=== PATIENT | female | born 1935 | race Caucasian/White ===

== ENCOUNTER 2019-12-17 03:35 | Inpatient (IN) | payer MEDICARE, OTHER ==
[~2019-12-17] VITALS: Ht 167.6 cm; Wt 86.4 kg
[~2019-12-17 03:35] MED LIST: ACET-6 PO; ALB2.5IS NEB; ALBUAER3 IN; ASCO500T11 PO; ASPI-543 PO; BISA10SU45 RE; CHOL20007 OR; DOCU100T15 PO; FURO1TAB31 PO; LACT10SO3 PO; MAGN400S25 PO; MULT1TAB95 PO; NITR0.4S29 SL; RISP0.5T12 PO
[2019-12-17 05:00] LABS: Basophils # (auto) 0 10 ^3/uL (0-0.2); Basophils % (auto) 0.5 % (0.0-2.0); Eosinophils # (auto) 0 10 ^3/uL (0-0.8); Eosinophils % (auto) 0.5 % (0.0-7.0); Hematocrit 42.1 % (36.0-46.0); Hemoglobin 13.5 g/dL (12.2-16.2); Lymphocytes # (auto) 1.8 10 ^3/uL (0.4-5.4); Mean Corpuscular Hemoglobin 30.1 pg (28.0-32.0); Mean Corpuscular Hgb Conc. 32.2 g/dL (32.0-36.0); Mean Corpuscular Volume 93.5 fL (80.0-100.0); Monocytes # (auto) 1.2 10 ^3/uL (0-1.3); Monocytes % (auto) 17.8 % (0.0-12.0); Neutrophils # (auto) 3.6 10 ^3/uL (1.6-8.6); Neutrophils % (auto) 54.2 % (37.0-80.0); Nucleated Red Blood Cells % 0.1 %; Platelet Count (auto) 124 10^3/uL (140-450); Red Cell Distribution Width 15.7 % (11.8-14.3); White Blood Cell 6.6 10^3/uL (4.4-10.8)
[2019-12-17] MEDS ORDERED: VANCOMYCIN 1GM/250ML 250 ML IV ONE (05:00)
[2019-12-17] MEDS ORDERED: PIPERACILLIN-TAZOB 3.375GM 100 ML IV ONE (05:00)
[2019-12-17 05:17] LABS: INR 1.15 (0.9-1.15); Partial Thromboplastin Time 28.5 sec (23.0-31.2)
[2019-12-17 05:23] LABS: Albumin 3.2 g/dL (3.4-5.0); Blood Urea Nitrogen 17 mg/dL (7-18); Calcium 8.7 mg/dL (8.5-10.1); Chloride 94 mmol/L (98-107); Glucose 86 mg/dL (74-106); Magnesium 2.4 mg/dL (1.6-2.6); Potassium 3.1 mmol/L (3.5-5.1); Sodium 141 mmol/L (136-145)
[2019-12-17] MEDS ORDERED: DexAMETHasone SOD PHOS 10MG/1ML VIAL INJ IV ONE (05:30)
[2019-12-17 05:31] LABS: Alanine Aminotransferase 12 U/L (13-56); Alkaline Phosphatase 68 U/L (45-117); Aspartate Aminotransferase 9 U/L (15-37); BUN/Creatinine Ratio 65.4; GFR African American 320 mL/min; GFR Non-African American 264 mL/min; Total Protein 6.2 g/dL (6.4-8.2)
[2019-12-17 05:53] LABS: Anion Gap 1 (5-15)
[2019-12-17 05:59] LABS: Carbon Dioxide 46 mmol/L (21-32)
[2019-12-17] MEDS ORDERED: FUROSEMIDE 20 MG/2 ML VIAL IV SCH (06:00)
[2019-12-17] MEDS ORDERED: ONDANSETRON HCL 4 MG/2 ML VIAL IV PRN (07:00)
[2019-12-17] MEDS ORDERED: MORPHINE SULF INJ 2 MG/ML SYRINGE 1ML IV PRN (07:00)
[2019-12-17] MEDS ORDERED: ACETAMINOPHEN 325 MG TAB PO PRN (07:00)
[2019-12-17] MEDS ORDERED: NITROGLYCERIN 0.4 MG SL TAB SL PRN (07:00)
[2019-12-17 07:33] LABS: Magnesium 2.3 mg/dL (1.6-2.6)
[2019-12-17 07:41] LABS: CRP High Sensitivity 1.08 mg/dL (< 0.3)
[2019-12-17] MEDS: DOXYCYCLINE 100MG/250ML 250 ML IV SCH ×2 (08:08→20:51)
[2019-12-17] MEDS: DexAMETHasone SOD PHOS 10MG/1ML VIAL INJ IV SCH (10:23)
[2019-12-17] MEDS: ASPirin 81 mg TAB PO SCH (10:24)
[2019-12-17] MEDS: ZINC SULFATE 220mg CAP or TAB PO SCH (10:25)
[2019-12-17] MEDS: CHOLECALCIFEROL (VITD3) 2,000 UNIT CAP PO SCH (10:26)
[2019-12-17] MEDS: ASCORBIC ACID 1,000 MG TAB PO SCH (10:26)
[2019-12-17] MEDS: FAMOTIDINE 20 MG TAB PO SCH ×2 (10:26→20:52)
[2019-12-17] MEDS: ENOXAPARIN SOD 40 MG/0.4 ML SYRINGE SC SCH (10:26)
[2019-12-17] MEDS: BUDESONIDE (INHALATION) 180 MCG IH IN SCH ×2 (11:35→21:23)
[2019-12-17] MEDS: ALBUTEROL SULF 2.5 MG/0.5ML(0.5%) NEB SOLN NEB SCH ×2 (11:47→21:23)
[2019-12-17] MEDS: IPRATROPIUM BROM 0.5 MG/2.5ML INH SOL NEB SCH ×2 (11:47→21:23)
[2019-12-17] MEDS: ALBUTEROL SULF HFA 90MCG INH 200DOSE IN SCH ×2 (14:00→21:24)
--- NOTE | 2019-12-17 14:05 | NUR ---
Respiratory note: MDI HELD, STILL PENDING COVID RESULTS.
[2019-12-17] MEDS ORDERED: VITA400T4 PO (14:37)
[2019-12-17] MEDS ORDERED: FURO20TA3 PO (14:37)
[2019-12-17] MEDS ORDERED: ZINC220C10 PO (14:37)
[2019-12-17] MEDS ORDERED: CHOL100040 PO (14:37)
[2019-12-17] MEDS ORDERED: POTA1TAB4 PO (14:39)
[2019-12-17] MEDS ORDERED: FAMO-12 PO (14:39)
[2019-12-17] MEDS ORDERED: ONDA-144 PO (14:42)
[2019-12-17] MEDS ORDERED: IPRA0.00 IN (14:45)
[2019-12-17 15:03] VITALS: BP 87/60
--- NOTE | 2019-12-17 16:15 | NUR ---
received report from ER.
--- NOTE | 2019-12-17 16:26 | NUR ---
Patient arrived to unit. Patient oriented to self only. Patient was oriented to room, call light and unit. Patient verbalized understanding.
[2019-12-17 17:00] VITALS: BP 99/74
--- NOTE | 2019-12-17 17:30 | NUR ---
wound photo taken, paper filled out placed in wound care box
[2019-12-17] MEDS: FUROSEMIDE 40 MG/4 ML VIAL IV SCH (17:43)
--- NOTE | 2019-12-17 18:04 | NUR ---
WOUND CARE NOTE: Wound care in to see patient per wound care request regarding sacral skin integrity issue that are noted present on admission. Bedside nurse took photograph of patient's wounds upon admission for reference. Patient is 84 y/o female with admitting diagnosis of Acute on Chronic Resp Failure. Patient is resting in bed in Rm. 233. Patient is awake and oriented to self. She's max assist in turning and repositioning. her Robert score is 11. Patient appears to be in no pain using Killian Blackwood Faces Pain Scale. Noted patient's upper medial sacrum (2x0.6cm) and Lt. sacrum (4x2cm) has open partial thickness wounds. Wounds are red with minimal serous drainage, no odor noted. Rahul wound is bright and dark red, non-blanchable. Patient's sacral wounds are consistent with Stage 2 pressure injury. Lower buttocks is erythremic and moist consistent with moisture associated dermatitis. Patient is incontinent. She's receiving BID/PRN cleaning and application of Z Guard cream with Opti foam sacral dressing covering the wounds. Repositioned patient for comfort facing her Lt side, redistributed pressure points with pillows. Patient tolerated well. Bed in low position, call trevino within reach, bed alarm on. RECOMMENDATION: Nursing to continue BID/PRN cleaning and application of Z Guard cream to sacral and lower buttocks per MD order, Dietary consult, frequent turning and repositioning schedule as condition permits, redistribute pressure points with pillows, elevate heels on pillows, frequent rahul care/check, keep clean and dry, air mattress (ordered), continue monitoring by wound care while patient is hospitalized. Addendum: 12/17/19 at 1854 by Ashley Agosto RN Amended: Links added.
--- NOTE | 2019-12-17 18:41 | NUR ---
AIR MATTRESS: Air mattress ordered at [facility]. HALIE 12/18/19 @ 1239 am. Reference #[id number]. Please call [facility] at if needed to follow up. Addendum: 12/17/19 at 1842 by Ashley Agosto RN Amended: Links added.
--- NOTE | 2019-12-17 19:30 | NUR ---
OPENING NOTE Received report from day shift RN. Patient is A&O X's self only. Patient is confused. Patient shows no s/s of distress and reports no pain. Respirations are even and unlabored. Patient receiving 4L O2 via N.C. Educated patient on POC and to use call light when in need of assistance. Bed is in lowest/locked position with side rails up X's 2 and call light is within reach of patient. Bed alarm set for safety. Repositioned pillows at this time for patient. Patient currently sitting with HOB elevated and eating dinner. Will continue care.
--- NOTE | 2019-12-17 20:00 | NUR ---
NOTE Patient incontinent of stool and urine. Patient was cleansed well. Barrier cream applied. Will replace sacral optifoam dressing. Full linen change was done. Changed patient's gown. Bed is in lowest/locked position with call light in reach of patient. HOB elevated and bed alarm on. Will continue care
[2019-12-17 21:59] VITALS: BP 109/67
[2019-12-17 22:08] VITALS: BP 122/63
[2019-12-18] MEDS: IPRATROPIUM BROM 0.5 MG/2.5ML INH SOL NEB SCH ×4 (02:15→19:16)
[2019-12-18] MEDS: ALBUTEROL SULF 2.5 MG/0.5ML(0.5%) NEB SOLN NEB SCH ×4 (02:15→19:16)
--- NOTE | 2019-12-18 02:15 | NUR ---
PT REFUSED HER MED NEB TX @ THIS TIME. STATES SHE JUST DOESN'T WANT IT. NO DISTRESS NOTED. SHE WAS TITRATED DOWN TO 2L NC, SPO2 93%, HR 59, RR 18. RN WAS MADE AWARE.
--- NOTE | 2019-12-18 02:24 | NUR ---
O2 Titrated down to 2L N.C. Saturation is between 92-95% per RT. Will continue to monitor oxygenation status.
[2019-12-18 05:00] VITALS: BP 128/60
--- NOTE | 2019-12-18 05:09 | NUR ---
WOUND CARE Patient was cleansed well at this time. Linen changed. Wound care performed as ordered. New optifoam on sacrum. Lower extremities on a pillow. Heels elevated off mattress. Will continue care.
[2019-12-18] MEDS: FUROSEMIDE 40 MG/4 ML VIAL IV SCH ×2 (05:42→18:00)
--- NOTE | 2019-12-18 06:35 | NUR ---
SPOKE WITH PATIENT'S DAUGHTER, SIVA Password was obtained. She was updated on the POC and all questions were answered. Also had some verification about family history and daughter states she does not want her mom to receiving PNA vaccine or flu vaccine.
[2019-12-18 07:28] LABS: Basophils # (auto) 0 10 ^3/uL (0-0.2); Basophils % (auto) 0.3 % (0.0-2.0); Hematocrit 43.1 % (36.0-46.0); Lymphocytes # (auto) 1.4 10 ^3/uL (0.4-5.4); Lymphocytes % (auto) 26.8 % (10.0-50.0); Mean Corpuscular Hemoglobin 29.9 pg (28.0-32.0); Mean Corpuscular Hgb Conc. 32.5 g/dL (32.0-36.0); Mean Corpuscular Volume 92.1 fL (80.0-100.0); Neutrophils # (auto) 2.7 10 ^3/uL (1.6-8.6); Neutrophils % (auto) 54.1 % (37.0-80.0); Nucleated Red Blood Cells % 0.1 %; Platelet Count (auto) 131 10^3/uL (140-450); Red Blood Cells 4.68 10^6/uL (4.0-5.20); Red Cell Distribution Width 15.7 % (11.8-14.3); White Blood Cell 5.1 10^3/uL (4.4-10.8)
--- NOTE | 2019-12-18 07:30 | NUR ---
Opening note assume care of patient from NOC RN. Patient is AOx4 no s/s of distress or SOB noted. Patient is on 4 L of O2 via nasal cannula. Bed is in lowest locked position, call light is within reach and side rails up x2, and call light within reach. Updated patient on plan of care and reinforcement is needed. Will continue to monitor.
[2019-12-18 07:37] LABS: Monocytes % (auto) 17.8 % (0.0-12.0)
[2019-12-18 07:38] LABS: Eosinophils # (auto) 0.1 10 ^3/uL (0-0.8); Eosinophils % (auto) 1.1 % (0.0-7.0); Monocytes # (auto) 0.8 10 ^3/uL (0-1.3)
[2019-12-18 07:45] LABS: Albumin 3.3 g/dL (3.4-5.0); Calcium 8.9 mg/dL (8.5-10.1); Magnesium 2.4 mg/dL (1.6-2.6)
[2019-12-18 07:48] LABS: BUN/Creatinine Ratio 43.8; Bilirubin, Total 0.8 mg/dL (0.2-1.0); Total Protein 6.3 g/dL (6.4-8.2)
[2019-12-18 08:00] VITALS: BP 148/64
--- NOTE | 2019-12-18 09:24 | NUR ---
Notified MD Acharya regarding critical lab value. No new orders received.
[2019-12-18] MEDS: DOXYCYCLINE 100MG/250ML 250 ML IV SCH ×2 (09:31→19:47)
[2019-12-18] MEDS: DexAMETHasone SOD PHOS 10MG/1ML VIAL INJ IV SCH (09:32)
[2019-12-18] MEDS: FAMOTIDINE 20 MG TAB PO SCH ×2 (09:32→21:52)
[2019-12-18] MEDS: ZINC SULFATE 220mg CAP or TAB PO SCH ×2 (09:32→09:44)
[2019-12-18] MEDS: ASPirin 81 mg TAB PO SCH (09:32)
[2019-12-18] MEDS: ASCORBIC ACID 1,000 MG TAB PO SCH ×2 (09:33→09:44)
[2019-12-18] MEDS: CHOLECALCIFEROL (VITD3) 2,000 UNIT CAP PO SCH ×2 (09:33→09:44)
[2019-12-18] MEDS: ENOXAPARIN SOD 40 MG/0.4 ML SYRINGE SC SCH (09:33)
--- NOTE | 2019-12-18 09:44 | NUR ---
patient refused medications Patient provided with water and two pills, shortly after patient stated "That's it, please just leave me alone. Dear God leave me alone, I don't want more." Educated patient on the risks of not taking medication. patient verbalized refusal.
[2019-12-18] MEDS: POTASSIUM CHL 20 Meq TABLET PO SCH (10:00)
[2019-12-18] MEDS: BUDESONIDE (INHALATION) 180 MCG IH IN SCH (10:00)
[2019-12-18 12:00] VITALS: BP 104/62
[2019-12-18] MEDS: ALBUTEROL SULF HFA 90MCG INH 200DOSE IN SCH (14:00)
--- NOTE | 2019-12-18 15:24 | NUR ---
Nutrition Assessment Notes Please refer to link for full assessment notes. Est Energy needs: 8501-1929 kcals (20-23 kcal/kgBW) Est Protein needs: 74-82 gms/day (1.0-1.1 gm/kgBW) Will continue to monitor and reassess prn. Addendum: 12/18/19 at [address] Amended: Links added.
--- NOTE | 2019-12-18 16:40 | NUR ---
Report Report given to Klarissa YADAV.
[2019-12-18 17:00] VITALS: BP 111/62
--- NOTE | 2019-12-18 17:14 | NUR ---
patient transferred to room 201 via speciality bed. No S/s of distress noted.
--- NOTE | 2019-12-18 17:20 | NUR ---
Patient transferred to 201. Patient alert and oriented x2 (name and ). On 4L O2 via nasal cannula. Bed is low, locked with 2x side rails up. Call light is within reach. Will continue to monitor Q1hr and PRN.
--- NOTE | 2019-12-18 19:30 | NUR ---
Opening Shift Note Assumed care of patient, awake and alert. Patient only aware of name and date of . No S/S of distress/SOB or pain. Patient on 4L NC. Safety measures maintained by keeping the bed locked in lowest position, 2 side rails up, personal items and call light within reach. Bed alarm on. Instructed on POC and to call for assist PRN, will continue to monitor for changes Q1hr and PRN.
[2019-12-18 22:00] VITALS: BP 107/70
[2019-12-19 05:00] VITALS: BP 116/66
[2019-12-19] MEDS: FUROSEMIDE 40 MG/4 ML VIAL IV SCH ×2 (06:02→17:33)
[2019-12-19] MEDS: IPRATROPIUM BROM 0.5 MG/2.5ML INH SOL NEB SCH ×2 (06:23→14:00)
[2019-12-19] MEDS: ALBUTEROL SULF 2.5 MG/0.5ML(0.5%) NEB SOLN NEB SCH ×2 (06:23→14:00)
[2019-12-19 08:00] VITALS: BP 134/81
[2019-12-19 09:00] VITALS: BP 134/81
[2019-12-19 09:11] LABS: Calcium 9.3 mg/dL (8.5-10.1)
[2019-12-19 09:13] LABS: BUN/Creatinine Ratio 38.9
[2019-12-19] MEDS ORDERED: CHOLECALCIFEROL (VITD3) 1,000UNIT=25mCg TAB PO SCH (10:00)
[2019-12-19] MEDS ORDERED: ASCORBIC ACID 500 MG TAB PO SCH (10:00)
[2019-12-19 10:09] LABS: Potassium 2.9 mmol/L (3.5-5.1)
[2019-12-19] MEDS ORDERED: POTASSIUM CHL 20 Meq TABLET PO ONE (10:15)
[2019-12-19] MEDS: DOXYCYCLINE 100MG/250ML 250 ML IV SCH ×2 (10:23→20:00)
[2019-12-19] MEDS: ZINC SULFATE 220mg CAP or TAB PO SCH (10:25)
[2019-12-19] MEDS: ASPirin 81 mg TAB PO SCH (10:26)
[2019-12-19] MEDS: POTASSIUM CHL 20 Meq TABLET PO SCH (10:26)
[2019-12-19] MEDS: ENOXAPARIN SOD 40 MG/0.4 ML SYRINGE SC SCH (10:26)
[2019-12-19] MEDS: FAMOTIDINE 20 MG TAB PO SCH ×3 (10:26→22:07)
[2019-12-19] MEDS: POTASSIUM CHL 20MEQ/100ML 100 ML IV SCH ×3 (12:20→17:32)
--- NOTE | 2019-12-19 14:00 | NUR ---
Respiratory note: PT REFUSED MEDNEB TX. SPO2 92% ON 4L NC, HR 64, RR 16, BS CLEAR BILATERALLY. WILL CONTINUE TO MONITOR PT. Addendum: 12/19/19 at 1602 by FLOR CANO, RT NO RESPIRATORY DISTRESS NOTED. PT STATED SHE JUST DIDN'T WANT IT.
[2019-12-19 18:12] VITALS: BP_SYST 117; BP_SYST 141; BP_DIAS 58; BP_DIAS 79
--- NOTE | 2019-12-19 19:20 | NUR ---
Opening Shift Note Assumed care of patient from day shift RN, patient awake and alert to name patient has some confusion. patient has sitter in place. safety measures in place bed in lowest position, side rails up x2 and call light with in reach. No S/S of distress/SOB or pain. Instructed on POC and to call for assist PRN, will continue to monitor for changes Q1hr and PRN.
[2019-12-19 22:09] VITALS: BP 114/72
--- NOTE | 2019-12-19 22:36 | NUR ---
IV insertion IV access obtained, via clean sterile technique by inserting 22 gauge catheter at left hand after 1 attempt(s). IV secured properly. No trauma to site. Patient tolerated well.
--- NOTE | 2019-12-19 22:40 | NUR ---
IV removal IV DC'd to right hand due to leaking removed with clean sterile technique, catheter fully intact. Pressure dressing applied to site. Patient tolerated well.
--- NOTE | 2019-12-20 01:37 | NUR ---
Telemonitor called patients heart rate went in the high 100s. Upon assessing patient, patient was being provided incontinence care and repositioning. Patient denied sob/pain or distress. patient running sinus rhythm at 72bpm.
[2019-12-20 05:00] VITALS: BP 135/67
[2019-12-20] MEDS: FUROSEMIDE 40 MG/4 ML VIAL IV SCH ×3 (05:30→17:51)
[2019-12-20] MEDS: IPRATROPIUM BROM 0.5 MG/2.5ML INH SOL NEB SCH ×3 (07:13→23:45)
[2019-12-20] MEDS: ALBUTEROL SULF 2.5 MG/0.5ML(0.5%) NEB SOLN NEB SCH ×3 (07:13→23:46)
--- NOTE | 2019-12-20 07:15 | NUR ---
Endorsed care to day shift RN. patient has no sob, distress, or pain. Safety measures in place bed in lowest position, side rails up x2, and call light with in reach. Patient also has sitter in place.
--- NOTE | 2019-12-20 07:30 | NUR ---
Opening Shift Note RECEIVED REPORT FROM NOC RN. Assumed care of patient, awake and alert. PATIENT ON OXYGEN AT 2 LPM VIA NASAL CANNULA WITH no S/S of distress/SOB or pain. BED IN LOWEST, LOCKED POSITION WITH SIDERAILS UP x2 AND CALL LIGHT AT BEDSIDE AND SITTER AT BEDSIDE. Instructed on POC and to call for assist PRN, will continue to monitor for changes Q1hr and PRN.
[2019-12-20] MEDS: DOXYCYCLINE 100MG/250ML 250 ML IV SCH ×2 (08:31→19:48)
[2019-12-20 08:57] VITALS: BP 157/96
[2019-12-20 10:23] LABS: BUN/Creatinine Ratio 38.1; Calcium 9.2 mg/dL (8.5-10.1); Potassium 3.5 mmol/L (3.5-5.1)
[2019-12-20] MEDS: FAMOTIDINE 20 MG TAB PO SCH ×2 (11:06→22:00)
[2019-12-20] MEDS: POTASSIUM CHL 20 Meq TABLET PO SCH (11:06)
[2019-12-20] MEDS: ASPirin 81 mg TAB PO SCH (11:06)
[2019-12-20] MEDS: ENOXAPARIN SOD 40 MG/0.4 ML SYRINGE SC SCH (11:07)
[2019-12-20 12:51] VITALS: BP 157/96
[2019-12-20 13:00] VITALS: BP 133/88
--- NOTE | 2019-12-20 13:50 | NUR ---
CALLED PATIENT'S DAUGHTER, SIVA, TO ADVISE OF DISCHARGE BACK TO [facility].
--- NOTE | 2019-12-20 14:50 | NUR ---
assessment re: ss consult Patient is a 84 year old female who is confused. Prior to admission patient was skilled at [facility]. Per patients conservator Jyotsna Crandall she would like patient to return to [facility] on discharge. Per patients daughter Roxann she wants patient to return to [facility] also. Patient has a fww and a wheelchair for home use. Patients PCP i Dr Ordaz at [facility]. Patient has a ss consult to return to [facility]. Jyotsna encinas has been notified and gave permission to contact [facility]. Siria Muñoz will work on order. Addendum: 12/20/19 at 1456 by Samantha Byrd Amended: Links added.
--- NOTE | 2019-12-20 15:12 | NUR ---
re-assessment Per Jyotsna at [facility] patient only has 3 medicare days left. Per Jyotsna conservator [phone] she will look for other placement. Waiting for Jyotsna to call me back. Addendum: 12/20/19 at 1513 by Samantha MAURICIO Amended: Links added.
[2019-12-20 17:00] VITALS: BP 138/73
--- NOTE | 2019-12-20 19:10 | NUR ---
SHIFT OPEN NOTE Assumed care of patient from day shift RN, awake and alert and oriented to self with confusion. Patient has sitter in place. No S/S of distress/SOB or pain. Instructed on POC and to call for assist PRN, safety measures in place bed in lowest position side rails up x2 and call light with in reach. will continue to monitor for changes Q1hr and PRN.
--- NOTE | 2019-12-20 22:00 | NUR ---
wound care patient continues to refuse dressing change. patient educate don benefits and risks patient refusing yelling "leave me alone"
[2019-12-20 22:29] VITALS: BP 151/66
[2019-12-21] MEDS: IPRATROPIUM BROM 0.5 MG/2.5ML INH SOL NEB SCH ×3 (05:58→21:37)
[2019-12-21] MEDS: ALBUTEROL SULF 2.5 MG/0.5ML(0.5%) NEB SOLN NEB SCH ×3 (05:58→21:37)
[2019-12-21] MEDS: FUROSEMIDE 40 MG/4 ML VIAL IV SCH ×2 (06:00→18:00)
[2019-12-21 06:06] VITALS: BP 126/68
[2019-12-21 06:38] LABS: Hemoglobin 15.8 g/dL (12.2-16.2); Mean Corpuscular Hemoglobin 30.6 pg (28.0-32.0); Mean Corpuscular Hgb Conc. 33.6 g/dL (32.0-36.0); Mean Corpuscular Volume 90.9 fL (80.0-100.0); Platelet Count (auto) 134 10^3/uL (140-450); Red Blood Cells 5.17 10^6/uL (4.0-5.20); Red Cell Distribution Width 15.9 % (11.8-14.3)
[2019-12-21 07:03] LABS: Albumin 3.3 g/dL (3.4-5.0); BUN/Creatinine Ratio 44.4; Bilirubin, Total 1.2 mg/dL (0.2-1.0); Calcium 9.1 mg/dL (8.5-10.1); Total Protein 6.4 g/dL (6.4-8.2)
--- NOTE | 2019-12-21 07:14 | NUR ---
Endorsed care to day shift RN. Patient has no signs of sob/ pain or distress. Safety measures in place bed in lowest position, side rails up x2, and call light with in reach. Patient has sitter in place.
--- NOTE | 2019-12-21 07:30 | NUR ---
Opening Shift Note Assumed care of patient, ASLEEP IN BED. No S/S of distress/SOB or pain. SITTER AT BEDSIDE. will continue to monitor for changes Q1hr and PRN. PER REPORT, PATIENT HASN'T BEEN COOPERATING AND HAD BEEN REFUSING TO TAKE ANY OF HER ORAL MEDICATION. PT WAS ALSO REFUSING PATIENT CARE FOR STAFF.
[2019-12-21 07:59] LABS: Basophils % (manual) 0 (0.0-2.0); Blast Cells 0; Eosinophils % (manual) 0 (0-7); Metamyelocytes % 0; Myelocytes % 0; Potassium 2.7 mmol/L (3.5-5.1); Promyelocytes % 0; Reactive Lymphocytes 0
[2019-12-21 08:00] VITALS: BP 122/77
--- NOTE | 2019-12-21 08:00 | NUR ---
Rounds Patient FOUND IN BED, EYES OPEN BUT WOULD NOT MAKE ANY EYE CONTACT. PT WAS JUST GROANING WHEN ASKED QUESTIONS SUCH PAIN OR HOW SHE'S FEELING. PT WAS ABLE TO STATE HER NAME. PT GOT AGITATED DURING PHYSICAL ASSESSMENT AND WAS REFUSING TO BE TOUCHED AND WAS SAYING "NO, PLS, NO" OVER AND OVER. PT DID START TO CALM DOWN WHEN I SPOKE TO HER IN A CALM AND REASSURING MANNER. I EXPLAINED TO PT WHAT WE'RE DOING AND WHY. PT THEN STARTED MAKING EYE CONTACT AND ALSO BECAME MORE RESPONSIVE. WHEN I ASKED THE PATIENT IF SHE LIKES COFFEE, THAT'S WHEN THE PATIENT SMILED AND SAID YES. DURING THIS COURSE OF INTERACTION, PT BECAME NOTICEABLY ALERT AND INTERACTIVE AND STARTED TALKING TO US. SHE ALSO BECAME A LOT MORE COOPERATIVE AND EXPRESSING GRATITUDE. PT'S SITTER WAS AT BEDSIDE AND ASSISTED PT WITH EATING BREAKFAST.
--- NOTE | 2019-12-21 08:49 | NUR ---
DR ASHRAF MADE AWARE OF PT'S LOW POTASSIUM LEVEL AND NO IV ACCESS AT THIS TIME. PER MD, TRY TO START ANOTHER IV ACCESS. MD IS AWARE THAT PATIENT HAD BEEN REFUSING ORAL MEDICATIONS AND IS ALSO CONFUSE AND REFUSES PATIENT CARE.
[2019-12-21] MEDS: ASPirin 81 mg TAB PO SCH (09:47)
[2019-12-21] MEDS: POTASSIUM CHL 20 Meq TABLET PO SCH (09:48)
[2019-12-21] MEDS: FAMOTIDINE 20 MG TAB PO SCH ×2 (09:48→21:09)
[2019-12-21] MEDS: ENOXAPARIN SOD 40 MG/0.4 ML SYRINGE SC SCH (09:48)
--- NOTE | 2019-12-21 10:00 | NUR ---
PT TOOK HER PO MEDICATION MEDS WERE CRUSHED AND GIVEN WITH A JELLO. AT THIS TIME, PT WAS VERY COOPERATIVE AND MORE INTERACTIVE, AND SMILING. PT HAD A BM AND SHE ALLOWED US TO CLEAN HER AND CHANGE HER BEDDINGS, AND WIPE HER FACE AND CLEAN HER MOUTH. PT TOLERATED THE ACTIVITY WELL. .
[2019-12-21] MEDS: DOXYCYCLINE 100MG/250ML 250 ML IV SCH ×2 (10:30→20:00)
--- NOTE | 2019-12-21 10:30 | NUR ---
IV insertion IV access obtained, via clean sterile technique by inserting 22 gauge catheter at LEFT FOREARM after 2 attempt(s). IV secured properly. No trauma to site. Patient tolerated well. NOTE: REMOVED PREVIOUS IV ON LEFT HAND IV DC'd with clean sterile technique, catheter fully intact. Pressure dressing applied to site. Patient tolerated well. NOTE:
[2019-12-21 10:47] LABS: Band Neutrophils % (manual) 1; Lymphocytes % (manual) 29 (10.0-50.0)
[2019-12-21 10:48] LABS: Monocytes % (manual) 16 (0-12)
--- NOTE | 2019-12-21 11:14 | NUR ---
Nutrition Followup Note Wt 88.2kg Pt was sleeping with no family at bedside at time of rounds. Pt is awaiting transfer to SNF. Pt has a cardiac 2g Na diet with inadequate po intake aeb pt with 25% po intake x 2 days per RN note. Consider adding Ensure Enlive BID Est Energy needs: 9756-3710 kcals (20-23 kcal/kgBW) Est Protein needs: 74-82 gms/day (1.0-1.1 gm/kgBW) Will continue to monitor and reassess prn. Labs: K 2.7L, Alb 3.3L, CO2 43H, Creat 0.36L BM: pt with 1 BM 12/19 per RN note Skin: BS 13 mod risk, full details in pharmacy customer care specialist note PES: 1) Inadequate oral intake r/t pt with a poor appetite aeb ave 38% PO intake over 2 meals 2) Altered nutrition related lab values r/t current medical condition aeb hypercapnia, hypokalemia, hypoalbuminemia Comments Will continue to monitor PO status, skin status, pertinent labs and weight trends. Will f/u in 3-5 days. 1) Continue to carefully monitor/assist pt PO intake to meet at least 75% of meals 2) If pt appetite remains poor consider supplemental nutrition support Ensure Enlive bid 3) Consider a daily MVI with 500mg VitC BID 4) Continue current plan of care Expected Outcomes/Goals: Pt appetite to improve Pt labs to improve
[2019-12-21 13:00] VITALS: BP 111/68
[2019-12-21] MEDS ORDERED: POTASSIUM CHL 20 Meq TABLET PO ONE (14:30)
[2019-12-21 17:00] VITALS: BP 141/86
--- NOTE | 2019-12-21 19:00 | NUR ---
Opening Shift Note Assumed care of patient, awake and alert. No S/S of distress/SOB or pain. Instructed on POC and to call for assist PRN, will continue to monitor for changes Q1hr and PRN.
--- NOTE | 2019-12-21 19:30 | NUR ---
CLOSING NOTES PT WAS FOUND SITTING UP IN BED AND EATING HER DINNER WITH THE SITTER'S HELP. PT WAS SMILING AND VERY PLEASANT AND WAS TALKING IN A CHEERFUL MANNER. PT DENIES ANY PAIN OR DISCOMFORT. NO DISTRESS NOTED.
[2019-12-21 22:00] VITALS: BP 108/61
[2019-12-22 05:00] VITALS: BP 118/66
[2019-12-22] MEDS: FUROSEMIDE 40 MG/4 ML VIAL IV SCH ×2 (05:43→18:37)
[2019-12-22] MEDS: IPRATROPIUM BROM 0.5 MG/2.5ML INH SOL NEB SCH ×3 (06:04→23:34)
[2019-12-22] MEDS: ALBUTEROL SULF 2.5 MG/0.5ML(0.5%) NEB SOLN NEB SCH ×3 (06:04→23:34)
--- NOTE | 2019-12-22 08:00 | NUR ---
PT NOTES PT FOUND SITTING UP IN BED AND EATING BREAKFAST INDEPENDENTLY, WHICH IS A MAJOR IMPROVEMENT COMPARED TO YESTERDAY WHERE SHE HAD TO BE FED BY THE SITTER. PT WAS SMILING AND IN A VERY GOOD MOOD. SITTER AT BEDSIDE.
[2019-12-22 09:00] VITALS: BP 93/68
[2019-12-22] MEDS: POTASSIUM CHL 20 Meq TABLET PO SCH (09:38)
[2019-12-22] MEDS: ASPirin 81 mg TAB PO SCH (09:38)
[2019-12-22] MEDS: ENOXAPARIN SOD 40 MG/0.4 ML SYRINGE SC SCH (09:38)
[2019-12-22] MEDS: FAMOTIDINE 20 MG TAB PO SCH ×2 (09:38→22:00)
--- NOTE | 2019-12-22 10:00 | NUR ---
PT OUT OF BED AND INTO THE CHAIR. TRANSFERED BY PHYSICAL THERAPIST. PT TOLERATED ACTIVITY WELL. SITTER AT BEDSIDE.
[2019-12-22] MEDS ORDERED: POTASSIUM CHL 20 Meq TABLET PO ONE (11:00)
--- NOTE | 2019-12-22 14:58 | NUR ---
PT IS BACK IN BED BUT NOW VERY UPSET DUE TO THE FACT THAT SHE HAD TO BE PUT BACK IN BED BY THE SITTER AND ANOTHER HAND OUTSIDE CUTTER. PT IS REFUSING TO BE TOUCHED AGAIN.
--- NOTE | 2019-12-22 16:00 | NUR ---
PT IN BED ASLEEP. NO DISTRESS NOTED.
[2019-12-22 16:45] VITALS: BP 138/73
--- NOTE | 2019-12-22 18:00 | NUR ---
PT STILL REFUSING EVERYTHING. SHE REFUSED HER DINNER, COFFEE, AND HER POTASSIUM PO MEDICATION. KEPT SAYING "LEAVE ME ALONE".
--- NOTE | 2019-12-22 18:39 | NUR ---
SPOKE TO SIVA, PT'S DAUGHTER SIVA IS UPDATED ON PT'S STATUS. PER SIVA, PT DOES THE SAME THING WITH THEM AT HOME.
[2019-12-22 22:00] VITALS: BP 135/64
[2019-12-22] MEDS ORDERED: POTASSIUM CHL 20 Meq TABLET PO SCH (22:00)
[2019-12-23 05:00] VITALS: BP 94/63
[2019-12-23] MEDS: FUROSEMIDE 40 MG/4 ML VIAL IV SCH ×2 (05:31→18:00)
[2019-12-23] MEDS: ALBUTEROL SULF 2.5 MG/0.5ML(0.5%) NEB SOLN NEB SCH ×3 (05:48→22:00)
[2019-12-23] MEDS: IPRATROPIUM BROM 0.5 MG/2.5ML INH SOL NEB SCH ×3 (05:48→22:00)
--- NOTE | 2019-12-23 05:50 | NUR ---
Respiratory note: PT REFUSED SCHEDULED 0600 MEDNEB TX, SAYS SHE DOESN'T WANT ANYTHING. REFUSING POX CHECK, SHAKING HER ARMS AND SAYING "I ASKED TO BE LEFT ALONE." NO S/S OF RESPIRATORY DISTRESS. SITTER AT BEDSIDE. RT NAME AND PAGER NUMBER ON BOARD. WILL RETURN FOR NEXT SCHEDULED TX.
[2019-12-23 06:14] VITALS: BP 94/63
--- NOTE | 2019-12-23 07:30 | NUR ---
ASSESSMENT DURING PATIENT ASSESSMENT, SHE STATED "PLEASE LEAVE ME ALONE." EDUCATED PATIENT ON ASSESSMENT NEEDS. PATIENT ALLOWED ASSESSMENT.
--- NOTE | 2019-12-23 07:30 | NUR ---
Opening Shift Note Assumed care of patient, awake and alert. No S/S of distress/SOB or pain. Instructed on POC and to call for assist PRN. Will continue to monitor for changes Q1hr and PRN.
[2019-12-23 08:12] LABS: Potassium 3.3 mmol/L (3.5-5.1)
[2019-12-23 08:14] LABS: Magnesium 1.9 mg/dL (1.6-2.6)
[2019-12-23 09:00] VITALS: BP 92/72
[2019-12-23] MEDS: ENOXAPARIN SOD 40 MG/0.4 ML SYRINGE SC SCH (10:00)
[2019-12-23] MEDS: FAMOTIDINE 20 MG TAB PO SCH ×2 (10:00→21:58)
[2019-12-23] MEDS: ASPirin 81 mg TAB PO SCH (10:00)
--- NOTE | 2019-12-23 10:20 | NUR ---
MEDICATIONS PATIENT REFUSING MEDICATIONS, STATING "LEAVE ME ALONE" EDUCATED PATIENT ON MEDICATION ADMINISTRATION, PATIENT REPEATED STATEMENT. WILL CONTINUE TO MONITOR
--- NOTE | 2019-12-23 10:40 | NUR ---
MD ROUNDS DR DIAZ AT BEDSIDE. NEW ORDERS RECEIVED/WILL CARRY OUT. WILL CONTINUE TO MONITOR
--- NOTE | 2019-12-23 11:10 | NUR ---
MD CALL SPOKE WITH DR DIAZ RE: DOWNGRADING PATIENT TO MED-SURGE
--- NOTE | 2019-12-23 11:59 | NUR ---
ENDORSE CARE ENDORSED CARE TO [facility]
[2019-12-23 13:00] VITALS: BP 86/62
--- NOTE | 2019-12-23 14:03 | NUR ---
Respiratory note: SCHEDULED 1400 MEDNEB TX NOT GIVEN, PT SAYS SHE DOES NOT NEED IT. HR 71, RR 16, SPO2 93% ON 4LPM NASAL CANNULA. BREATH SOUNDS CLEAR T/O. PT DENIES SOB. NO S/S OF DISTRESS. ADVISED PT TO CALL FOR RT IF NEEDED. SITTER AT BEDSIDE.
--- NOTE | 2019-12-23 15:14 | NUR ---
re-assessment Per consult. Placement. I have left a message for patients conservator Elisa to return my call regarding placement. Elisa has been looking for placement for patient. Addendum: 12/23/19 at 1515 by Samantha Byrd Amended: Links added.
[2019-12-23 17:00] VITALS: BP 90/70
--- NOTE | 2019-12-23 21:40 | NUR ---
RT NOTE: PT RESTING IN BED WITH NO DISTRESS, PT ON 4LPM NC SPO2 96%, HR 88, RR 16. PT REFUSING MED NEB TX, SAYING NO SHE IS FINE AND DOESN'T NEED THAT. NO TX GIVEN AT THIS TIME.
[2019-12-23 22:00] VITALS: BP 107/74
[2019-12-24 05:00] VITALS: BP 104/72
[2019-12-24] MEDS: FUROSEMIDE 40 MG/4 ML VIAL IV SCH ×2 (05:36→18:01)
[2019-12-24] MEDS: IPRATROPIUM BROM 0.5 MG/2.5ML INH SOL NEB SCH ×3 (06:00→23:17)
[2019-12-24] MEDS: ALBUTEROL SULF 2.5 MG/0.5ML(0.5%) NEB SOLN NEB SCH ×3 (06:00→23:17)
--- NOTE | 2019-12-24 06:00 | NUR ---
Respiratory note: PT REFUSED TX. PT IN NO RESPIRATORY DISTRESS AT THIS TIME. Addendum: 12/24/19 at 0826 by SUZAN QUINTANA RT RT PT REFUSED VITALS AT THIS TIME.
[2019-12-24 08:00] VITALS: BP 98/64
[2019-12-24 09:57] LABS: BUN/Creatinine Ratio 61.8; Calcium 8.7 mg/dL (8.5-10.1); Potassium 3.4 mmol/L (3.5-5.1)
[2019-12-24 10:30] VITALS: BP 98/64
[2019-12-24] MEDS: FAMOTIDINE 20 MG TAB PO SCH ×2 (10:43→21:32)
[2019-12-24] MEDS: ASPirin 81 mg TAB PO SCH (10:43)
[2019-12-24] MEDS: ENOXAPARIN SOD 40 MG/0.4 ML SYRINGE SC SCH (10:44)
[2019-12-24] MEDS: POTASSIUM EFFERVESENT TAB 25 MEQ PO SCH (10:45)
--- NOTE | 2019-12-24 11:18 | NUR ---
Nutrition Followup Note Wt 84.0kg Pt was sleeping with no family at bedside at time of rounds. Pt is awaiting transfer to SNF. Pt has a Cardiac 2g Na diet with improved but still inadequate PO intake aeb 45% PO intake x 5 meals per RN note. Est Energy needs: 9522-4715 kcals (20-23 kcal/kgBW) Est Protein needs: 74-82 gms/day (1.0-1.1 gm/kgBW) Will continue to monitor and reassess prn. Labs: K 2.7L, Alb 3.3L, CO2 43H, Creat 0.36L BM: Pt with 1 BM on 12/22 per RN note Skin: BS 12 high risk, full details in career services representative note PES: 1) Inadequate oral intake r/t pt with a poor appetite aeb ave 38% PO intake over 2 meals 2) Altered nutrition related lab values r/t current medical condition aeb hypercapnia, hypokalemia, hypoalbuminemia Comments Will continue to monitor PO status, skin status, pertinent labs and weight trends. Will f/u in 3-5 days. 1) Continue to carefully monitor/assist pt PO intake to meet at least 75% of meals 2) If pt appetite remains poor consider supplemental nutrition support Ensure Enlive bid 3) Consider a daily MVI with 500mg VitC BID 4) Continue current plan of care
--- NOTE | 2019-12-24 11:45 | NUR ---
WOUND CARE NOTE: IN TO SEE PATIENT FOR WOUND RE-EVALUATION AT THIS TIME. PATIENT CONTINUES TO REST ON SPECIALTY AIR MATTRESS, CURRENT JOHN SCORE IS 12. PATIENT CAN ASSIST WITH HER TURNING/REPOSITIONING. MASD WITH STAGE 2 PRESSURE INJURY TO MEDIAL AND LEFT SACRUM ARE MUCH IMPROVED, WITH NO WOUNDS NOTED AT THIS TIME. SKIN REMAINS LIGHT TO DARK RED, INTACT. NEW WOUND PHOTO TAKEN AT THIS TIME, APPLIED ZGUARD, OPTIFOAM GENTLE SACRAL DRESSING APPLIED. REPOSITIONED PATIENT ONTO LEFT SIDE, REDISTRIBUTING PRESSURE POINTS WITH PILLOWS/WEDGES. SKIN/WOUND CARE UPDATED. RECOMMEND: CONTINUATION WITH ALL WOUND CARE ORDERS PREVIOUSLY PRESCRIBED BY MD. WOUND CARE TEAM WILL CONTINUE TO MONITOR. Addendum: 12/24/19 at 1619 by Savi Garcia RN Amended: Links added.
[2019-12-24 13:39] VITALS: BP 102/58
--- NOTE | 2019-12-24 15:15 | NUR ---
Provided update to on patients status to daughter, Roxann.
[2019-12-24 17:00] VITALS: BP 92/58
--- NOTE | 2019-12-24 23:17 | NUR ---
Respiratory note: PT STARTED ON SCHEDULED MED NEB TX BUT AFTER 3 MINUTES TOOK OFF THE AEROSOL MASK AND WOULD NOT LET ME PUT IT BACK ON HER. PT IS CONFUSED. SITTER AT BEDSIDE TRIED TALKING TO PT TO CALM HER DOWN BUT IT DID NOT WORK. TX STOPPED AT THIS TIME. NO DISTRESS NOTED. HR 62 RR 16 SP02 95% 4L NASAL CANNULA.
[2019-12-25 04:30] VITALS: BP 103/66
--- NOTE | 2019-12-25 05:30 | NUR ---
TOTAL LINEN CHANGE PATIENT INCONTINENT OF URINE. TOTAL LINEN CHANGE PROVIDED. PARTIAL BED BATH PROVIDED TO PATIENT. NEW GOWN PROVIDED. PATIENT TOLERATED WELL. TURNED AND REPOSITIONED FOR COMFORT. LE ELEVATED ON PILLOW.
[2019-12-25] MEDS: IPRATROPIUM BROM 0.5 MG/2.5ML INH SOL NEB SCH ×4 (06:00→22:10)
[2019-12-25] MEDS: FUROSEMIDE 40 MG/4 ML VIAL IV SCH ×2 (06:00→18:00)
[2019-12-25] MEDS: ALBUTEROL SULF 2.5 MG/0.5ML(0.5%) NEB SOLN NEB SCH ×4 (06:00→22:10)
--- NOTE | 2019-12-25 06:36 | NUR ---
Respiratory note: PT REFUSED SCHEDULE MN TX AT THIS TIME. PT STATED SHE COULDN'T DO IT RIGHT NOW. NO SOB OR DISTRESS NOTED. WILL CONTINUE TO MONITOR PT.
[2019-12-25 08:00] VITALS: BP 90/59
[2019-12-25 09:00] VITALS: BP 90/59
[2019-12-25] MEDS: POTASSIUM EFFERVESENT TAB 25 MEQ PO SCH (09:42)
[2019-12-25] MEDS: ASPirin 81 mg TAB PO SCH (09:42)
[2019-12-25] MEDS: FAMOTIDINE 20 MG TAB PO SCH ×2 (09:43→22:01)
[2019-12-25] MEDS: ENOXAPARIN SOD 40 MG/0.4 ML SYRINGE SC SCH (09:43)
--- NOTE | 2019-12-25 10:25 | NUR ---
Dr Acharya bedside with patient.
[2019-12-25 13:00] VITALS: BP 96/61
--- NOTE | 2019-12-25 13:30 | NUR ---
Updated Dr Acharya that patient will be d/c'd to a [facility], not SNF. Per , patient to f/u with Dr Carroll 2 weeks post d/c. No further orders received
--- NOTE | 2019-12-25 14:27 | NUR ---
re-assessment Physician report has been completed and emailed to Jyotsna Gonzales [phone] court conservator. Per Jyotsna she will forward to [facility] and [facility] [address] [place] [phone] . Waiting on return call now. Addendum: 12/25/19 at 1430 by Samantha MAURICIO Amended: Links added.
--- NOTE | 2019-12-25 14:28 | NUR ---
Respiratory note: PT REFUSED SCHEDULE MN TX AT THIS TIME. NO SOB OR DISTRESS NOTED. WILL CONTINUE TO MONITOR PT.
[2019-12-25 16:58] VITALS: BP 92/61
--- NOTE | 2019-12-25 17:00 | NUR ---
Salma Covid swab came back negative. Per Samantha in SS, no need to do in house covid swab as the negative test is only needed for transfer to [facility].
--- NOTE | 2019-12-25 17:05 | NUR ---
Any social service questions concerning discharge for patient, please contact Mich at ext [phone]
--- NOTE | 2019-12-25 19:35 | NUR ---
OPENING SHIFT NOTE Assumed care of patient who is A&O x1. Currently on 3L NC with no s.s of distress. Denies pain at this time. PIV in left forearm is intact and patent. Flushed with 10ml NS. Patient is nonambulatory, on bedrest with staff initiated turning Q2 hours. Patient is on a specialty mattress. Bed is in low locked position with side rails up x2. Call light is within reach and patient encouraged to call for assistance when needed. Sitter is at the bedside for safety. Will continue to monitor for changes PRN.
[2019-12-25 22:00] VITALS: BP 97/67
--- NOTE | 2019-12-26 00:36 | NUR ---
IV INSERTION/REMOVAL IV access obtained, via clean sterile technique by inserting 22 gauge catheter at left wrist after 2 attempts. IV secured properly. No trauma to site. Patient tolerated well. IV removal IV to left forearm per hospital protocol. DC'd with clean sterile technique, catheter fully intact. Pressure dressing applied to site. Patient tolerated well.
[2019-12-26 04:20] VITALS: BP 102/63
[2019-12-26] MEDS: FUROSEMIDE 40 MG/4 ML VIAL IV SCH ×3 (06:00→18:00)
[2019-12-26 08:30] VITALS: BP 94/67
[2019-12-26] MEDS: ENOXAPARIN SOD 40 MG/0.4 ML SYRINGE SC SCH (10:20)
[2019-12-26] MEDS: ASPirin 81 mg TAB PO SCH (10:20)
[2019-12-26] MEDS: FAMOTIDINE 20 MG TAB PO SCH ×3 (10:20→21:49)
[2019-12-26] MEDS: POTASSIUM EFFERVESENT TAB 25 MEQ PO SCH (10:21)
[2019-12-26 12:00] VITALS: BP 114/60
[2019-12-26] MEDS: IPRATROPIUM BROM 0.5 MG/2.5ML INH SOL NEB SCH ×4 (14:03→22:04)
[2019-12-26] MEDS: ALBUTEROL SULF 2.5 MG/0.5ML(0.5%) NEB SOLN NEB SCH ×4 (14:03→22:04)
[2019-12-26 16:44] VITALS: BP_SYST 103; BP_SYST 90; BP_DIAS 54; BP_DIAS 63
--- NOTE | 2019-12-26 20:00 | NUR ---
Opening Shift Note Assumed care of patient, awake and alert, confused resistive to care, total care. No S/S of distress/SOB or pain. Instructed on POC and to call for assist PRN, will continue to monitor for changes Q1hr and PRN.Sitter at bedside.
[2019-12-26 20:05] VITALS: BP 91/58
--- NOTE | 2019-12-26 21:49 | NUR ---
PATIENT SPIT THE PEPCID, REFUSED TAKING IT.
--- NOTE | 2019-12-26 22:11 | NUR ---
Respiratory note: PT REFUSED MED NEB TX AT THIS TIME, PT IN NO RESPIRATORY DISTRESS. WILL CONTINUE TO MONITOR.
--- NOTE | 2019-12-27 04:43 | NUR ---
Refused to check her vital signs.
[2019-12-27] MEDS: FUROSEMIDE 40 MG/4 ML VIAL IV SCH (05:13)
[2019-12-27 05:55] VITALS: BP 120/77
--- NOTE | 2019-12-27 07:22 | NUR ---
Care report given to Neema Leblanc, patient is resting no distress, sitter at bedside.
[2019-12-27] MEDS: IPRATROPIUM BROM 0.5 MG/2.5ML INH SOL NEB SCH ×3 (07:28→21:43)
[2019-12-27] MEDS: ALBUTEROL SULF 2.5 MG/0.5ML(0.5%) NEB SOLN NEB SCH ×3 (07:28→21:43)
[2019-12-27 09:00] VITALS: BP 95/59
[2019-12-27 09:48] LABS: Calcium 8.5 mg/dL (8.5-10.1); Potassium 3.2 mmol/L (3.5-5.1)
[2019-12-27] MEDS ORDERED: POTASSIUM CHLORIDE 40 MEQ, LIDOCAINE 1% (LOCAL ANESTH.) 4 ML in SODIUM CHL 0.9% 100 ML IV ONE (10:45)
[2019-12-27] MEDS ORDERED: POTASSIUM EFFERVESENT TAB 25 MEQ GT ONE (10:45)
[2019-12-27] MEDS: FAMOTIDINE 20 MG TAB PO SCH ×3 (10:49→21:20)
[2019-12-27] MEDS: ENOXAPARIN SOD 40 MG/0.4 ML SYRINGE SC SCH (10:49)
[2019-12-27] MEDS: POTASSIUM EFFERVESENT TAB 25 MEQ PO SCH (10:49)
[2019-12-27] MEDS: ASPirin 81 mg TAB PO SCH (10:50)
[2019-12-27] MEDS ORDERED: POTASSIUM CHLORIDE 20 MEQ, LIDOCAINE 1% (LOCAL ANESTH.) 2 ML in SODIUM CHL 0.9% 100 ML IV ONE (11:15)
--- NOTE | 2019-12-27 12:08 | NUR ---
Nutrition Followup Note Wt 87.7 kg Pt was awake with sitter at bedside at time of rounds. Pt is awaiting transfer to SNF. Pt has a Cardiac 2g Na diet with improved but still inadequate PO intake aeb 55% PO intake x 5 meals per RN note. Pt reported feeling fine, doing well has a good appetite. Est Energy needs: 7838-9819 kcals (20-23 kcal/kgBW) Est Protein needs: 74-82 gms/day (1.0-1.1 gm/kgBW) Will continue to monitor and reassess prn. Labs: K 3.4 L, Alb 3.3 L BM: Pt with 2 BM on 12/25 per RN note Skin: BS 14 high risk, full details in veterinarian laboratory animal care note PES: 1) Inadequate oral intake r/t pt with a poor appetite aeb ave 38% PO intake over 2 meals 2) Altered nutrition related lab values r/t current medical condition aeb hypercapnia, hypokalemia, hypoalbuminemia Comments Will continue to monitor PO status, skin status, pertinent labs and weight trends. Will f/u in 3-5 days. 1) Continue to carefully monitor/assist pt PO intake to meet at least 75% of meals 2) If pt appetite remains poor consider supplemental nutrition support Ensure Enlive bid 3) Consider a daily MVI with 500mg VitC BID 4) Continue current plan of care
--- NOTE | 2019-12-27 12:44 | NUR ---
Received call from huang Pérez that bed is secured at [facility]. Elisa is currently awaiting the daughter to drop off the payment and is needing discharge orders. Provided Elisa information on transportation companies for transport to facility ( [facility] ). Pt may need home oxygen and huang is requesting Home health services as well as for Prescriptions to be filled prior to disccharge for patient as well. Notified nurse, Deana, of the need or ABG on RA, prescriptions to be filled, and order for home health.
--- NOTE | 2019-12-27 14:43 | NUR ---
Respiratory note: PT REFUSING SCHEDULED 1400 MEDNEB TX. PT SEEMS AGITATED, SAYS SHE DOESN'T NEED IT RIGHT NOW. ALSO REFUSING POX CHECK. PT LAYING IN BED COMFORTABLY WITH 1LPM NASAL CANNULA, NO S/S OF DISTRESS. ADVISED PT TO CALL FOR RT IF SHE CHANGES HER MIND. SITTER AT BEDSIDE.
--- NOTE | 2019-12-27 15:45 | NUR ---
Discharge planning to include Home health for med management and vitals. Per Jyotsna, pt's conservator, in agreeance with home health and has requested [facility] home health. All information faxed to agency and pt will be seen 24-48 hours after discharge. Notified Jyotsna who is presently awaiting daughter to pay for facility before proceeding. Once daughter has paid facility Jyotsna will contact [facility] for transportation. Advised Jyotsna that nurse will need a 2 hour window to prepare pt for discharge. Also pt does not qualify for oxygen, ABG on RA is 55.1 Covering nurse will need to contact pharmacy and have discharge prescriptions called in and picked up for patient prior to discharge.
[2019-12-27 16:10] VITALS: BP 120/77
[2019-12-27 17:00] VITALS: BP 94/66
--- NOTE | 2019-12-27 18:37 | NUR ---
CALLED [facility] FOR TRANSPORTATION BUT HAS NO ANSWER, LEFT A MESSAGE TO CALL BACK.
--- NOTE | 2019-12-27 19:24 | NUR ---
SPOKE WITH SUZIE THE DESIZING MACHINE OPERATOR OF [facility], SHE SAID THE PAPER WORKS IS NOT FINALIZED YET, BED IS NOT AVAILABLE UNTIL TOMORROW, [facility] WILL ARRANGE THE TRANSPORTATION TOMORROW.
--- NOTE | 2019-12-27 19:25 | NUR ---
CARE ENDORSED TO RN ROBERTO, PT PENDING DISCHARGE.
--- NOTE | 2019-12-27 20:00 | NUR ---
Opening Shift Note Assumed care of patient, awake and alert, confused very resistive to care, total care. No S/S of distress/SOB or pain. Instructed on POC and to call for assist PRN, will continue to monitor for changes Q1hr and PRN.
[2019-12-27 21:29] VITALS: BP 93/63
[2019-12-28] MEDS: FUROSEMIDE 40 MG/4 ML VIAL IV SCH ×2 (05:43→10:00)
[2019-12-28 05:49] VITALS: BP 122/65
[2019-12-28] MEDS: IPRATROPIUM BROM 0.5 MG/2.5ML INH SOL NEB SCH ×3 (05:55→22:00)
[2019-12-28] MEDS: ALBUTEROL SULF 2.5 MG/0.5ML(0.5%) NEB SOLN NEB SCH ×3 (05:55→22:00)
--- NOTE | 2019-12-28 07:50 | NUR ---
Opening Note Received report from table games shift manager RN. Patient is resting in bed with no signs or symptoms of distress noted at this time. Patient is on 2L NC, respirations even and unlabored. Bed in low and locked position, call light within reach. Will continue to monitor Q1 hour and PRN. Sitter at bedside for safety.
[2019-12-28 09:00] VITALS: BP 93/58
[2019-12-28] MEDS: ENOXAPARIN SOD 40 MG/0.4 ML SYRINGE SC SCH (10:33)
[2019-12-28] MEDS: POTASSIUM EFFERVESENT TAB 25 MEQ PO SCH (10:33)
[2019-12-28] MEDS: FAMOTIDINE 20 MG TAB PO SCH ×3 (10:33→22:00)
[2019-12-28] MEDS: ASPirin 81 mg TAB PO SCH (10:33)
--- NOTE | 2019-12-28 11:38 | NUR ---
Dr. Tomasz Stein at bedside MD at bedside discussing plan of care with patient and this RN. No new orders received. Will continue to monitor Q1 hour and PRN.
[2019-12-28 13:00] VITALS: BP 100/60
--- NOTE | 2019-12-28 19:10 | NUR ---
Closing Note Report given to shift supervisor RN. No signs or symptoms of distress noted at this time.
[2019-12-28 22:00] VITALS: BP 102/75
[2019-12-29 03:20] VITALS: BP 102/75
[2019-12-29 05:00] VITALS: BP 112/69
[2019-12-29] MEDS: IPRATROPIUM BROM 0.5 MG/2.5ML INH SOL NEB SCH ×3 (05:51→22:00)
[2019-12-29] MEDS: ALBUTEROL SULF 2.5 MG/0.5ML(0.5%) NEB SOLN NEB SCH ×3 (05:51→22:00)
--- NOTE | 2019-12-29 07:40 | NUR ---
Opening Note Received report from warehouse worker 2nd shift RN. Patient is resting in bed with no signs or symptoms of distress noted at this time. Patient is awake, alert and oriented to name and date at this time. Patient is on 2L NC, respirations even and unlabored. Bed in low and locked position, call light within reach. Will continue to monitor Q1 hour and PRN. Sitter at bedside for safety.
[2019-12-29 09:00] VITALS: BP 100/62
[2019-12-29] MEDS: FUROSEMIDE 40 MG/4 ML VIAL IV SCH (10:00)
[2019-12-29] MEDS: ENOXAPARIN SOD 40 MG/0.4 ML SYRINGE SC SCH (10:03)
[2019-12-29] MEDS: FAMOTIDINE 20 MG TAB PO SCH ×2 (10:03→22:23)
[2019-12-29] MEDS: ASPirin 81 mg TAB PO SCH (10:04)
[2019-12-29] MEDS: POTASSIUM EFFERVESENT TAB 25 MEQ PO SCH (10:04)
--- NOTE | 2019-12-29 12:03 | NUR ---
Received call from Jyotsna Goyal from [facility] states that bed is available for the patient at [facility] and care, transportation is arranged for the patient tomorrow 12/30/2019 at 1530.
[2019-12-29 13:00] VITALS: BP 101/63
[2019-12-29 17:00] VITALS: BP 95/62
--- NOTE | 2019-12-29 19:22 | NUR ---
Opening Shift Note Assumed care of patient, awake and alert x 1-2, Shows confusion. . No S/S of distress/SOB or pain. Sitter at bedside for safety. Instructed on POC and to call for assist PRN, will continue to monitor for changes Q1hr and PRN.
--- NOTE | 2019-12-29 19:22 | NUR ---
Closing Note Report given to russian teacher RN. No signs or symptoms of distress noted at this time. Addendum: 12/29/19 at 1925 by SANDY ANNA RN RN sitter at bedside for safety
[2019-12-29 22:00] VITALS: BP 105/70
--- NOTE | 2019-12-29 22:10 | NUR ---
UNABLE TO GIVE PT MN TX. PT REFUSED. NO SOB NOTED.
[2019-12-30 01:00] VITALS: BP 112/76
--- NOTE | 2019-12-30 01:35 | NUR ---
Patient has been coughing a lot. Patient refused to check her oxygen saturation and refused breathing treatment.
--- NOTE | 2019-12-30 04:00 | NUR ---
Patient had a bowel movement. Patient were screaming and confused while cleaning and changing pads. Patient calm down after. Placed back nasal cannula on. Patient keeps on taking out oxygen. Will continue to monitor patient.
[2019-12-30 05:00] VITALS: BP 100/66
[2019-12-30] MEDS: IPRATROPIUM BROM 0.5 MG/2.5ML INH SOL NEB SCH ×3 (06:00→22:00)
[2019-12-30] MEDS: ALBUTEROL SULF 2.5 MG/0.5ML(0.5%) NEB SOLN NEB SCH ×3 (06:00→22:00)
--- NOTE | 2019-12-30 06:00 | NUR ---
Respiratory note: PT REFUSED MN TX AT THIS TIME. PT SEEMED VERY ANGRY. NO SOB OR DISTRESS NOTED. PT WAS ALSO TRYING TO PULL OFF NC.
--- NOTE | 2019-12-30 08:00 | NUR ---
OPENING SHIFT NOTE: PATIENT RESTING IN BED, A/OX1 ACTIVE IN PLAN OF CARE AND PLEASANT. PATIENT RE-ORIENTED AND UPDATED ON PLAN OF CARE, UNABLE TO REALLY COMPREHEND AT THIS TIME. RESPIRATIONS EVEN AND UNLABORED, NOTED TO BE 92% ON 2LNC. WILL LET MD KNOW NEED FOR ABG ON ROOM AIR AND POSSIBLE HOME O2 ON DC. SITTER AT BEDSIDE, WILL CONTINUE TO MONITOR.
[2019-12-30 09:00] VITALS: BP 100/69
[2019-12-30] MEDS: ENOXAPARIN SOD 40 MG/0.4 ML SYRINGE SC SCH (10:00)
--- NOTE | 2019-12-30 10:00 | NUR ---
DC WOUND PHOTOS OBTAINED.
--- NOTE | 2019-12-30 11:00 | NUR ---
Nutrition Followup Note Wt 86.4 kg Pt was sleeping with sitter at bedside at time of rounds. Pt is awaiting transfer to SNF. Pt has a Cardiac 2g Na diet with improved adequate PO intake aeb 100% PO intake x 2 meals per RN note. Est Energy needs: 2240-0407 kcals (20-23 kcal/kgBW) Est Protein needs: 74-82 gms/day (1.0-1.1 gm/kgBW) Will continue to monitor and reassess prn. Labs: K 3.4 L, Alb 3.3 L BM: Pt with 1 BM on 12/29 per RN note Skin: BS 15 high risk, full details in care coordination manager note PES: 1) Inadequate oral intake r/t pt with a poor appetite aeb ave 38% PO intake over 2 meals 2) Altered nutrition related lab values r/t current medical condition aeb hypercapnia, hypokalemia, hypoalbuminemia Comments Will continue to monitor PO status, skin status, pertinent labs and weight trends. Will f/u in 3-5 days. 1) Continue to carefully monitor/assist pt PO intake to meet at least 75% of meals 2) If pt appetite remains poor consider supplemental nutrition support Ensure Enlive bid 3) Consider a daily MVI with 500mg VitC BID 4) Continue current plan of care
[2019-12-30] MEDS: POTASSIUM EFFERVESENT TAB 25 MEQ PO SCH (12:23)
[2019-12-30] MEDS: ASPirin 81 mg TAB PO SCH (12:23)
[2019-12-30] MEDS: FUROSEMIDE 40 MG/4 ML VIAL IV SCH (12:23)
[2019-12-30] MEDS: FAMOTIDINE 20 MG TAB PO SCH ×2 (12:23→22:00)
[2019-12-30 13:00] VITALS: BP 112/76
--- NOTE | 2019-12-30 14:55 | NUR ---
[facility]: ABLE TO REACH [facility] AT [phone] SPOKE WITH [facility]. PREVIOUSLY SCHEDULED SHIP ERECTOR TIME FOR 1530 NOT ABLE TO WORK SINCE WE ARE NOW WAITING FOR HOME O2 TO BE APPROVED AND DELIVERED. THIS RN TO CALL [facility] BACK ONCE PATIENT HAS O2 AND A CLOSER ESTIMATED TIME FOR TRANSPORT.
--- NOTE | 2019-12-30 16:34 | NUR ---
D/C Planning Per consult for home o2. [facility] concentrate oxygen and home oxygen to be deliver to bed side. Per Vera with [facility] [phone] they will deliver medical equipment between 4:00-17:00.
--- NOTE | 2019-12-30 16:56 | NUR ---
[facility] DELIV[facility]: OXYGEN DELIVERED TO PATIENT'S BEDSIDE. THIS RN MADE CALL TO JANIS TO ARRANGE NEW MATURITY CHECKER TIME.
[2019-12-30 17:00] VITALS: BP 98/72
--- NOTE | 2019-12-30 17:56 | NUR ---
[facility] ETA 22:30
--- NOTE | 2019-12-30 19:03 | NUR ---
CARE ENDORSED TO NOC RN.
--- NOTE | 2019-12-30 21:50 | NUR ---
Respiratory note: PT REFUSED TX AT THIS TIME, STATES SHE DOESN'T WANT IT, IS BREATHING FINE. AWARE TO CALL IF SHE BECOMES SOB. SITTER AT BEDSIDE. SPO2 95% ON 2L N/C, HR 56, RR 16.
--- NOTE | 2019-12-30 22:30 | NUR ---
pt discharged via ambulance in stable condition on O2, all belongings and concentrator with patient.
== END 2019-12-30 22:30 | disposition home health service (06) | DRG 291 ==
LOC: EDBD 03:35 → EDUNIT# 03:35 → ER 03:37 → TELE 03:38 → TELE-EAST 16:32 → TELE-CENTR 12-18 17:25 → CENTRAL 12-23 20:09
PROVIDERS: ADMIT Nurse Practitioner; ATTEND Family Medicine
DX: I11.0 Hypertensive heart disease with heart failure (principal); J96.21 Acute and chronic respiratory failure with hypoxia; J90 Pleural effusion, not elsewhere classified; I50.33 Acute on chronic diastolic (congestive) heart failure; J44.9 Chronic obstructive pulmonary disease, unspecified; N63.10 Unspecified lump in the right breast, unspecified quadrant; F03.90 Unspecified dementia, unspecified severity, without behavioral disturbance, psychotic disturbance, mood disturbance, and anxiety; R22.2 Localized swelling, mass and lump, trunk; E87.6 Hypokalemia; I48.91 Unspecified atrial fibrillation; Z20.828 Contact with and (suspected) exposure to other viral communicable diseases; Z98.891 History of uterine scar from previous surgery; Z79.899 Other long term (current) drug therapy; Z79.891 Long term (current) use of opiate analgesic; Z79.01 Long term (current) use of anticoagulants; Z79.82 Long term (current) use of aspirin; Z91.19 Patient's noncompliance with other medical treatment and regimen
CPT/HCPCS: 36415; 36600; 71045; 80048; 80053; 82728; 82805; 83605; 83615; 83735; 83880; 84132; 84484; 85007; 85025; 85027; 85610; 85730; 86141; 87081; 87426; 93005; 94640; 97110; 97116; 97530; G0378; J1100; J2001; J3480; J3490

== ENCOUNTER 2020-03-07 15:06 | Inpatient (IN) | payer MEDICARE, OTHER ==
[~2020-03-07] VITALS: Ht 167.6 cm; Wt 68.0 kg
[~2020-03-07 15:06] MED LIST changes: -ALB2.5IS NEB; +CHOL100040 PO; -CHOL20007 OR; +FAMO-12 PO; -FURO1TAB31 PO; +FURO20TA3 PO; +IPRA0.00 IN; +ONDA-144 PO; +POTA1TAB4 PO; -RISP0.5T12 PO; +VITA400T4 PO; +ZINC220C10 PO
[2020-03-07 19:54] LABS: Basophils # (auto) 0 10 ^3/uL (0-0.2); Basophils % (auto) 0.1 % (0.0-2.0); Eosinophils # (auto) 0 10 ^3/uL (0-0.8); Hematocrit 47.2 % (36.0-46.0); Hemoglobin 15.1 g/dL (12.2-16.2); Lymphocytes # (auto) 1.7 10 ^3/uL (0.4-5.4); Lymphocytes % (auto) 14.7 % (10.0-50.0); Mean Corpuscular Hemoglobin 29.4 pg (28.0-32.0); Mean Corpuscular Hgb Conc. 31.9 g/dL (32.0-36.0); Mean Corpuscular Volume 92.1 fL (80.0-100.0); Monocytes % (auto) 8.2 % (0.0-12.0); Nucleated Red Blood Cells % 0.2 %; Platelet Count (auto) 126 10^3/uL (140-450); Red Blood Cells 5.12 10^6/uL (4.0-5.20); White Blood Cell 11.7 10^3/uL (4.4-10.8)
[2020-03-07 20:12] LABS: Calcium 8.3 mg/dL (8.5-10.1); Chloride 88 mmol/L (98-107); Potassium 4.5 mmol/L (3.5-5.1); Sodium 126 mmol/L (136-145)
[2020-03-07 20:20] LABS: Alanine Aminotransferase 12 U/L (13-56); Albumin 2.2 g/dL (3.4-5.0); Alkaline Phosphatase 107 U/L (45-117); Anion Gap 12 (5-15); Aspartate Aminotransferase 16 U/L (15-37); BUN/Creatinine Ratio 61.8; Bilirubin, Total 2.5 mg/dL (0.2-1.0); Blood Urea Nitrogen 34 mg/dL (7-18); Carbon Dioxide 26 mmol/L (21-32); GFR African American 135 mL/min; GFR Non-African American 111 mL/min; Glucose 91 mg/dL (74-106); Magnesium 2.5 mg/dL (1.6-2.6); Total Protein 5.5 g/dL (6.4-8.2)
[2020-03-08] MEDS ORDERED: ALBUTEROL SULF HFA 90MCG INH 200DOSE IN PRN (00:30)
[2020-03-08] MEDS ORDERED: BISACODYL 10 MG RECT SUPP PR PRN (00:30)
[2020-03-08] MEDS ORDERED: ONDANSETRON HCL 4 MG/2 ML VIAL IV PRN (00:45)
[2020-03-08] MEDS ORDERED: ACETAMINOPHEN 325 MG TAB PO PRN (00:45)
[2020-03-08] MEDS: D5W/SOD CHLO 0.9% 1,000 ML IV SCH ×2 (00:45→21:13)
[2020-03-08] MEDS ORDERED: HYDROcodone-ACET 5/325MG TAB PO PRN (00:45)
[2020-03-08] MEDS ORDERED: SODIUM CHL 3% 500 ML IV ONE (00:45)
[2020-03-08] MEDS ORDERED: MORPHINE SULF INJ 2 MG/ML SYRINGE 1ML IV PRN (00:45)
[2020-03-08] MEDS ORDERED: NITROGLYCERIN 0.4 MG SL TAB SL PRN (00:45)
[2020-03-08] MEDS ORDERED: cefTRIAXone 1GM/50ML D5W 50 ML IV ONE (02:00)
[2020-03-08] MEDS ORDERED: ALBUTEROL SULF 2.5 MG/0.5ML(0.5%) NEB SOLN NEB PRN (02:00)
[2020-03-08] MEDS ORDERED: NOREPINEPHRINE 8 MG/250ML KIT 250 ML IV ONE (03:59)
[2020-03-08] MEDS: NOREPINEPHRINE 8 MG/250ML KIT 250 ML IV SCH (04:00)
[2020-03-08] MEDS ORDERED: NOREPINEPHRINE 8 MG/250ML KIT 250 ML IV SCH (05:00)
[2020-03-08 06:11] LABS: Basophils # (auto) 0 10 ^3/uL (0-0.2); Basophils % (auto) 0.2 % (0.0-2.0); Eosinophils # (auto) 0 10 ^3/uL (0-0.8); Hemoglobin 13.1 g/dL (12.2-16.2); Monocytes # (auto) 0.9 10 ^3/uL (0-1.3)
[2020-03-08 06:13] LABS: Lymphocytes % (auto) 16.4 % (10.0-50.0); Mean Corpuscular Hemoglobin 29.3 pg (28.0-32.0); Mean Corpuscular Hgb Conc. 31.2 g/dL (32.0-36.0); Neutrophils # (auto) 9.5 10 ^3/uL (1.6-8.6); Neutrophils % (auto) 76.4 % (37.0-80.0); Nucleated Red Blood Cells % 0.3 %; Platelet Count (auto) 37 10^3/uL (140-450); Red Blood Cells 4.46 10^6/uL (4.0-5.20); Red Cell Distribution Width 17.6 % (11.8-14.3); White Blood Cell 12.5 10^3/uL (4.4-10.8)
[2020-03-08 06:52] LABS: Anion Gap 8 (5-15); Carbon Dioxide 23 mmol/L (21-32); Chloride 93 mmol/L (98-107); Glucose 317 mg/dL (74-106); Sodium 124 mmol/L (136-145)
[2020-03-08 06:53] LABS: Alanine Aminotransferase 9 U/L (13-56); Albumin 1.4 g/dL (3.4-5.0); Alkaline Phosphatase 81 U/L (45-117); Aspartate Aminotransferase 13 U/L (15-37); BUN/Creatinine Ratio 51.5; Bilirubin, Total 1.6 mg/dL (0.2-1.0); Blood Urea Nitrogen 34 mg/dL (7-18); Calcium 6.9 mg/dL (8.5-10.1); GFR African American 109 mL/min; GFR Non-African American 90 mL/min; Total Protein 4.2 g/dL (6.4-8.2)
[2020-03-08] MEDS ORDERED: ENOXAPARIN SOD 30 MG/0.3 ML SYRINGE SC SCH (10:00)
[2020-03-08] MEDS ORDERED: ASPirin-EC 81 mg tab PO SCH (10:00)
[2020-03-08] MEDS ORDERED: FUROSEMIDE 20 MG/2 ML VIAL IV SCH (10:00)
[2020-03-08] MEDS: DOCUSATE SOD 100 MG CAP PO SCH ×2 (10:00→22:00)
[2020-03-08] MEDS ORDERED: FAMOTIDINE (10MG/ML) 2ML VL IV SCH ×2 (10:00→10:34)
[2020-03-08] MEDS: CHOLECALCIFEROL (VITD3) 1,000UNIT=25mCg TAB PO SCH (10:00)
[2020-03-08] MEDS ORDERED: FAMOTIDINE 20 MG TAB PO SCH (10:00)
[2020-03-08] MEDS: ALPHA TOCOPHERYL ACID SUCCINAT 400 UNIT PO SCH (10:00)
[2020-03-08] MEDS: ASCORBIC ACID 500 MG TAB PO SCH ×2 (10:00→22:00)
[2020-03-08] MEDS ORDERED: DEXTROSE (50%) 50ML SYRG IV PRN (11:15)
[2020-03-08] MEDS ORDERED: PANTOPRAZOLE 40 MG/10 ML VIAL INJ IV ONE (11:15)
[2020-03-08] MEDS ORDERED: SODIUM CHLORIDE 0.9% 500 ML IV ONE (11:15)
[2020-03-08] MEDS ORDERED: SODIUM CHLORIDE 0.9% 1,000 ML IV SCH (11:15)
[2020-03-08] MEDS: MULTIPLE VITAMIN TAB PO SCH (11:41)
[2020-03-08] MEDS ORDERED: IPRATROPIUM BROM 0.5 MG/2.5ML INH SOL HHN PRN (12:00)
[2020-03-08 12:16] LABS: Hematocrit 40.3 % (36.0-46.0); Hemoglobin 13.2 g/dL (12.2-16.2)
[2020-03-08 12:31] LABS: BUN/Creatinine Ratio 70.8; Calcium 7.1 mg/dL (8.5-10.1); Potassium 3.6 mmol/L (3.5-5.1)
[2020-03-08] MEDS: InsuLIN REG 1unit/0.01ml Soln (100units/ml) SC SCH ×2 (13:48→18:00)
[2020-03-08] MEDS: ACCU-CHEK COMFORT CURVE STRIP VI SCH ×2 (13:49→18:07)
[2020-03-08] MEDS: metroNIDAZOLE 500MG/100ML 100 ML IV SCH ×2 (14:57→22:13)
[2020-03-08 20:40] LABS: Hematocrit 42.5 % (36.0-46.0); Hemoglobin 13.3 g/dL (12.2-16.2)
[2020-03-09 00:13] LABS: Urine Bacteria MANY /hpf (None Seen); Urine Blood 1+ /uL (Negative); Urine Hyaline Cast MOD /lpf (0 - 2); Urine Mucus MODERATE (None Seen); Urine Specific Gravity 1.024 (1.001-1.035); Urine WBC 48 /hpf (0 - 5); Urine WBC Clumps PRESENT /hpf (None Seen)
[2020-03-09] MEDS: ACCU-CHEK COMFORT CURVE STRIP VI SCH ×5 (00:15→23:39)
[2020-03-09 01:18] LABS: Hematocrit 39.5 % (36.0-46.0); Hemoglobin 12.5 g/dL (12.2-16.2)
[2020-03-09] MEDS: metroNIDAZOLE 500MG/100ML 100 ML IV SCH ×3 (06:00→22:20)
[2020-03-09] MEDS: InsuLIN REG 1unit/0.01ml Soln (100units/ml) SC SCH ×5 (06:00→23:40)
[2020-03-09] MEDS ORDERED: OCTREOTIDE ACETATE 500 MCG in SODIUM CHL 0.9% 99 ML IV SCH (08:00)
[2020-03-09] MEDS ORDERED: OCTREOTIDE ACETATE 100 MCG in SODIUM CHL 0.9% 50 ML IV ONE (08:00)
[2020-03-09] MEDS: NOREPINEPHRINE 8 MG/250ML KIT 250 ML IV SCH (08:13)
[2020-03-09] MEDS: PANTOPRAZOLE 40mg/50ML NS AE 50 ML IV SCH ×2 (08:20→15:06)
[2020-03-09] MEDS: ALPHA TOCOPHERYL ACID SUCCINAT 400 UNIT PO SCH (10:00)
[2020-03-09] MEDS: DOCUSATE SOD 100 MG CAP PO SCH ×2 (10:00→21:59)
[2020-03-09] MEDS: ASCORBIC ACID 500 MG TAB PO SCH ×2 (10:00→21:58)
[2020-03-09] MEDS: MULTIPLE VITAMIN TAB PO SCH (10:00)
[2020-03-09] MEDS ORDERED: PANTOPRAZOLE 40 MG/10 ML VIAL INJ IV SCH (10:00)
[2020-03-09 10:01] LABS: Albumin 1.9 g/dL (3.4-5.0); Calcium 7.5 mg/dL (8.5-10.1); Potassium 3.6 mmol/L (3.5-5.1)
[2020-03-09 10:03] LABS: Basophils # (auto) 0 10 ^3/uL (0-0.2); Basophils % (auto) 0.1 % (0.0-2.0); Eosinophils # (auto) 0 10 ^3/uL (0-0.8); Hematocrit 36.1 % (36.0-46.0); Hemoglobin 11.9 g/dL (12.2-16.2); Lymphocytes # (auto) 1.5 10 ^3/uL (0.4-5.4); Lymphocytes % (auto) 13.5 % (10.0-50.0); Mean Corpuscular Hemoglobin 29.9 pg (28.0-32.0); Mean Corpuscular Volume 90.6 fL (80.0-100.0); Monocytes # (auto) 0.9 10 ^3/uL (0-1.3); Monocytes % (auto) 8.2 % (0.0-12.0); Neutrophils # (auto) 8.5 10 ^3/uL (1.6-8.6); Neutrophils % (auto) 78.2 % (37.0-80.0); Nucleated Red Blood Cells % 0.3 %; Platelet Count (auto) 111 10^3/uL (140-450); Red Blood Cells 3.99 10^6/uL (4.0-5.20); Red Cell Distribution Width 17.1 % (11.8-14.3); White Blood Cell 10.8 10^3/uL (4.4-10.8)
[2020-03-09 10:05] LABS: BUN/Creatinine Ratio 64.2; Bilirubin, Total 1.2 mg/dL (0.2-1.0); Total Protein 4.4 g/dL (6.4-8.2)
[2020-03-09 10:49] LABS: INR 1.31 (0.9-1.15); Partial Thromboplastin Time 37.9 sec (23.0-31.2)
[2020-03-09] MEDS: CHOLECALCIFEROL (VITD3) 1,000UNIT=25mCg TAB PO SCH (16:03)
[2020-03-09] MEDS ORDERED: AMIODARONE HCL 150 MG in D5W 5% 100 ML IV ONE (16:15)
[2020-03-09] MEDS ORDERED: AMIODARONE 450mg/250ml AE 250 ML IV SCH (16:30)
[2020-03-09] MEDS ORDERED: PANTOPRAZOLE 40mg/50ML NS AE 50 ML IV ONE (16:57)
[2020-03-09] MEDS: D5W/SOD CHLO 0.9% 1,000 ML IV SCH (17:04)
[2020-03-09] MEDS: PANTOPRAZOLE 40 MG/10 ML VIAL INJ IV SCH (22:20)
[2020-03-09] MEDS: AMIODARONE 450mg/250ml AE 250 ML IV SCH (22:38)
[2020-03-10] MEDS: InsuLIN REG 1unit/0.01ml Soln (100units/ml) SC SCH ×4 (05:57→23:58)
[2020-03-10] MEDS: ACCU-CHEK COMFORT CURVE STRIP VI SCH ×4 (05:57→23:58)
[2020-03-10] MEDS: metroNIDAZOLE 500MG/100ML 100 ML IV SCH ×3 (05:58→21:58)
[2020-03-10] MEDS: NOREPINEPHRINE 8 MG/250ML KIT 250 ML IV SCH (07:05)
[2020-03-10 11:08] LABS: Hematocrit 37.3 % (36.0-46.0); Hemoglobin 11.8 g/dL (12.2-16.2); Mean Corpuscular Hemoglobin 29.4 pg (28.0-32.0); Mean Corpuscular Hgb Conc. 31.7 g/dL (32.0-36.0); Mean Corpuscular Volume 92.6 fL (80.0-100.0); Platelet Count (auto) 119 10^3/uL (140-450); Red Blood Cells 4.03 10^6/uL (4.0-5.20); Red Cell Distribution Width 17.4 % (11.8-14.3); White Blood Cell 15.9 10^3/uL (4.4-10.8)
[2020-03-10 11:15] LABS: Basophils % (manual) 0 (0.0-2.0); Blast Cells 0; Eosinophils % (manual) 0 (0-7); Myelocytes % 0; Promyelocytes % 0; Reactive Lymphocytes 0
[2020-03-10] MEDS: ALPHA TOCOPHERYL ACID SUCCINAT 400 UNIT PO SCH (11:35)
[2020-03-10] MEDS: DOCUSATE SOD 100 MG CAP PO SCH ×2 (11:36→21:34)
[2020-03-10] MEDS: CHOLECALCIFEROL (VITD3) 1,000UNIT=25mCg TAB PO SCH (11:36)
[2020-03-10] MEDS: ASCORBIC ACID 500 MG TAB PO SCH ×2 (11:36→21:34)
[2020-03-10] MEDS: MULTIPLE VITAMIN TAB PO SCH (11:36)
[2020-03-10 11:37] LABS: BUN/Creatinine Ratio 42.2; Calcium 7.6 mg/dL (8.5-10.1)
[2020-03-10] MEDS: PANTOPRAZOLE 40 MG/10 ML VIAL INJ IV SCH ×2 (11:53→21:58)
[2020-03-10 12:01] LABS: Band Neutrophils % (manual) 10; Lymphocytes % (manual) 19 (10.0-50.0); Metamyelocytes % 2; Monocytes % (manual) 10 (0-12)
[2020-03-10] MEDS ORDERED: cefTRIAXone 1GM/50ML D5W 50 ML IV ONE (12:15)
[2020-03-10] MEDS: AMIODARONE 450mg/250ml AE 250 ML IV SCH (13:51)
[2020-03-10] MEDS ORDERED: AMIODARONE HCL 200 MG TAB PO ONE (15:00)
[2020-03-10] MEDS: D5W/SOD CHLO 0.9% 1,000 ML IV SCH (15:00)
[2020-03-10] MEDS: AMIODARONE HCL 200 MG TAB PO SCH (21:59)
[2020-03-11] MEDS: metroNIDAZOLE 500MG/100ML 100 ML IV SCH ×3 (06:08→20:53)
[2020-03-11] MEDS: ACCU-CHEK COMFORT CURVE STRIP VI SCH ×3 (06:08→16:29)
[2020-03-11] MEDS: InsuLIN REG 1unit/0.01ml Soln (100units/ml) SC SCH ×3 (06:08→16:29)
[2020-03-11] MEDS: NOREPINEPHRINE 8 MG/250ML KIT 250 ML IV SCH (06:32)
[2020-03-11] MEDS: D5W/SOD CHLO 0.9% 1,000 ML IV SCH (09:06)
[2020-03-11] MEDS: PANTOPRAZOLE 40 MG/10 ML VIAL INJ IV SCH (09:06)
[2020-03-11] MEDS: cefTRIAXone 1GM/50ML D5W 50 ML IV SCH (09:06)
[2020-03-11] MEDS: DOCUSATE SOD 100 MG CAP PO SCH ×2 (09:07→20:43)
[2020-03-11] MEDS: ALPHA TOCOPHERYL ACID SUCCINAT 400 UNIT PO SCH (09:07)
[2020-03-11] MEDS: ASCORBIC ACID 500 MG TAB PO SCH ×2 (09:07→20:43)
[2020-03-11] MEDS: MULTIPLE VITAMIN TAB PO SCH (09:07)
[2020-03-11] MEDS: CHOLECALCIFEROL (VITD3) 1,000UNIT=25mCg TAB PO SCH (09:07)
[2020-03-11] MEDS: AMIODARONE HCL 200 MG TAB PO SCH ×2 (09:07→20:43)
[2020-03-11] MEDS ORDERED: SODIUM CHLORIDE 0.9% 500 ML IV ONE (19:45)
[2020-03-11] MEDS: PANTOPRAZOLE 40mg/50ML NS AE 50 ML IV SCH (20:53)
[2020-03-11 22:28] LABS: Hematocrit 41.3 % (36.0-46.0); Mean Corpuscular Hgb Conc. 29.1 g/dL (32.0-36.0); Mean Corpuscular Volume 99.3 fL (80.0-100.0); Platelet Count (auto) 82 10^3/uL (140-450); Red Blood Cells 4.16 10^6/uL (4.0-5.20); Red Cell Distribution Width 17.9 % (11.8-14.3); White Blood Cell 24.9 10^3/uL (4.4-10.8)
[2020-03-11 22:34] LABS: Basophils % (manual) 0 (0.0-2.0); Blast Cells 0; Eosinophils % (manual) 0 (0-7); Metamyelocytes % 0; Myelocytes % 0; Promyelocytes % 0; Reactive Lymphocytes 0
[2020-03-12] MEDS: PANTOPRAZOLE 40mg/50ML NS AE 50 ML IV SCH ×4 (00:27→15:56)
[2020-03-12] MEDS: ACCU-CHEK COMFORT CURVE STRIP VI SCH ×3 (00:27→12:00)
[2020-03-12] MEDS: D5W/SOD CHLO 0.9% 1,000 ML IV SCH (03:09)
[2020-03-12 03:17] LABS: Band Neutrophils % (manual) 9; Lymphocytes % (manual) 13 (10.0-50.0); Monocytes % (manual) 8 (0-12)
[2020-03-12] MEDS: metroNIDAZOLE 500MG/100ML 100 ML IV SCH ×2 (05:05→15:04)
[2020-03-12] MEDS: InsuLIN REG 1unit/0.01ml Soln (100units/ml) SC SCH ×3 (05:17→12:00)
[2020-03-12] MEDS: NOREPINEPHRINE 8 MG/250ML KIT 250 ML IV SCH (05:18)
[2020-03-12] MEDS: ALPHA TOCOPHERYL ACID SUCCINAT 400 UNIT PO SCH (08:10)
[2020-03-12] MEDS: cefTRIAXone 1GM/50ML D5W 50 ML IV SCH (08:10)
[2020-03-12] MEDS: MULTIPLE VITAMIN TAB PO SCH (08:11)
[2020-03-12] MEDS: CHOLECALCIFEROL (VITD3) 1,000UNIT=25mCg TAB PO SCH (08:11)
[2020-03-12] MEDS: AMIODARONE HCL 200 MG TAB PO SCH (08:11)
[2020-03-12] MEDS: DOCUSATE SOD 100 MG CAP PO SCH (08:11)
[2020-03-12] MEDS: ASCORBIC ACID 500 MG TAB PO SCH (08:11)
[2020-03-12] MEDS ORDERED: AMIODARONE HCL 200 MG TAB PO SCH (10:00)
[2020-03-12 11:15] VITALS: BP 85/64
== END 2020-03-12 17:45 | DRG 871 ==
LOC: EDBD 15:06 → ER 15:09 → OVERFLOW 15:10
PROVIDERS: ADMIT Nurse Practitioner Family; ATTEND Family Medicine
DX: A41.9 Sepsis, unspecified organism (principal); J96.01 Acute respiratory failure with hypoxia; K62.5 Hemorrhage of anus and rectum; E87.1 Hypo-osmolality and hyponatremia; N39.0 Urinary tract infection, site not specified; I47.2 Ventricular tachycardia; I13.0 Hypertensive heart and chronic kidney disease with heart failure and stage 1 through stage 4 chronic kidney disease, or unspecified chronic kidney disease; I95.9 Hypotension, unspecified; D64.9 Anemia, unspecified; N63.10 Unspecified lump in the right breast, unspecified quadrant; I48.91 Unspecified atrial fibrillation; Z51.5 Encounter for palliative care; Z66 Do not resuscitate; I50.9 Heart failure, unspecified; K59.00 Constipation, unspecified; Z20.828 Contact with and (suspected) exposure to other viral communicable diseases; F03.90 Unspecified dementia, unspecified severity, without behavioral disturbance, psychotic disturbance, mood disturbance, and anxiety; Z79.01 Long term (current) use of anticoagulants; Z74.01 Bed confinement status; Z82.0 Family history of epilepsy and other diseases of the nervous system; Z90.710 Acquired absence of both cervix and uterus; Z87.81 Personal history of (healed) traumatic fracture; I46.9 Cardiac arrest, cause unspecified; N18.9 Chronic kidney disease, unspecified
CPT/HCPCS: 36415; 71045; 74176; 80048; 80053; 81001; 82962; 83036; 83735; 83880; 84484; 85007; 85014; 85018; 85025; 85027; 85045; 85610; 85730; 86850; 86900; 86901; 87426; 87493; 92610; 93005; 96360; C9113; G0378; J0696; J1815; J3490; J7060